=== PATIENT | female | born 1965 | race Caucasian/White ===

== ENCOUNTER 2017-03-17 13:39 | Outpatient (CLI) ==
[2014-06-03 20:42] VITALS: BMI 36.3
--- NOTE | 2017-03-17 14:39 | DI ---
EXAM: Chest two views HISTORY: Bronchitis COMPARISON: 04/06/2016 TECHNIQUE: Two views of the chest were performed FINDINGS: There is lower airway bronchial wall thickening. There is no focal airspace consolidatio n. There is no pleural effusion or pneumothorax. The heart is enlarged, unchanged in size. There is a prosthetic valve. The mediastinal contour is unchanged. Median sternotomy wires.. There is no acute abnormality of the bones. IMPRESSION: 1. Lower airway thickening may represent reactive airways disease or bronchiolitis. No focal airsp bonnie consolidation. 2. Cardiomegaly
== END 2017-03-17 13:40 | disposition home or self-care (01) ==
LOC: RAD 13:39
PROVIDERS: ATTEND Family Medicine
DX: J40 Bronchitis, not specified as acute or chronic (principal)

== ENCOUNTER 2017-05-19 08:50 | Outpatient (CLI) ==
[2014-06-03 20:42] VITALS: BMI 36.3
--- NOTE | 2017-05-22 11:36 | HOLTER ---
PATIENT INFORMATION AND COMMENTS Indications: PALPITATIONS __ Patient Medications: CYMBALTA, METOPROLOL, LISINOPRIL, PRAVASTATIN, BUSPAR, RANITIDINE, JANUVIA, COUMADIN __ Pre-procedure Summary: Protocol: Standard Heart Rate Started: 05/19/17907 Minimum: 59 BPM Weight: 218 LBS Ended: 05/20/1781074 Maximum: 133 BPM Height: 64" Duration: 24 HOURS Average: 86 BPM _ INTERPRETATIONS/OBSERVATIONS: 1. BASIC RHYTHM: SINUS, RATE 60 BPM TO 130 BPM, AVERAGE 85 BPM 2. INFREQUENT TO RARE PAC'S AND PVC'S, NO TACHYARRHYTHMIAS 3. NO ST-T WAVE CHANGES FROM BASELINE 4. ACTIVITY LOG NOT MAINTAINED MTDD
== END 2017-05-19 08:51 | disposition home or self-care (01) ==
LOC: CAR 08:50
PROVIDERS: ATTEND Family Medicine
DX: R00.2 Palpitations (principal)

== ENCOUNTER 2017-10-12 13:52 | Outpatient (CLI) ==
[2014-06-03 20:42] VITALS: BMI 36.3
--- NOTE | 2017-10-12 14:22 | DI ---
EXAM: Three views of the left hand HISTORY: Pain . COMPARISON: None FINDINGS: There is no cortical irregularity or displaced fracture of the left hand. The joint spaces maintained. There is no lytic or blastic lesion. Soft tissues are unremarkable. IMPRESSION: No acute abnormality of the left hand.
== END 2017-10-12 13:53 | disposition home or self-care (01) ==
LOC: RAD 13:52
PROVIDERS: ATTEND Family Medicine
DX: M79.642 Pain in left hand (principal)

== ENCOUNTER 2018-01-16 14:13 | Outpatient (CLI) ==
[2014-06-03 20:42] VITALS: BMI 36.3
[2018-01-16 14:24] VITALS: BP 128/80; TEMP 98
== END 2018-01-16 14:14 | disposition home or self-care (01) ==
LOC: OPMED 14:13
PROVIDERS: ATTEND Family Medicine
DX: R35.0 Frequency of micturition (principal)
CPT/HCPCS: 51798

== ENCOUNTER 2019-02-20 12:35 | Outpatient (CLI) ==
[2018-10-11 19:19] VITALS: BMI 39.6
--- NOTE | 2019-02-22 10:15 | MAMMO ---
EXAM: Bilateral digital screening mammogram (2-D and 3-D) History: Screening Comparison: None available. Technique: MLO and CC views of bilateral breasts demonstrate heterogeneously dense breast parenchyma which can obscure small lesions. Benign bilateral breast calcifications. CAD was reviewed by the r adiologist. Tomosynthesis was performed. There are no dominant masses, no suspicious microcalcifica tions and no architectural distortions Impression: Benign mammogram. Recommend followup routine screening mammography in 1 year. BIRADS 2, benign
== END 2019-02-20 12:36 | disposition home or self-care (01) ==
LOC: RAD 12:35
PROVIDERS: ATTEND Family Medicine
DX: Z12.31 Encounter for screening mammogram for malignant neoplasm of breast (principal)